=== PATIENT | male | born 1955 | race Caucasian/White ===

== ENCOUNTER 2018-07-28 17:55 | Emergency (ER) | payer MEDICAID ==
[2018-07-28] MEDS ORDERED: 0.9 % SODIUM CHLORIDE 1,000 ML BAG IV ONE (18:19)
--- NOTE | 2018-07-28 18:19 | Emergency Department Record ---
History of Present Illness - General Chief complaint: Flank Pain Stated complaint: LEFT FLANK PAIN Time Seen by Provider: 07/28/18 18:11 Source: Patient Mode of Arrival: Ambulatory Limitations: No limitations - History of Present Illness Initial comments: The patient is here due to L sided AP for one day. The onset was yesterday and the pain has been gradually worsening. The patient describes it as an aching gnawing pain. He denies any nausea, vomiting, diarrhea, fever, constipation, dysuria, or hematuria. He has no hx of similar issues and no hx of any abdominal surgeries. MD Complaint: Other Onset/Timin -: Days(s) Location: Left flank Radiation: Epigastric, Suprapubic Severity scale (1-10): 8 Quality: Aching, Dull, Sharp, Stabbing Consistency: Intermittent - Related Data Home Medications Medication Instructions Recorded Confirmed Last Taken No Home Med [NO HOME MEDS] 07/28/18 07/28/18 Unknown Allergies Allergy/AdvReac Type Severity Reaction Status Date / Time No Known Drug Allergies Allergy Verified 07/28/18 18:10 Travel Screening - Travel/Exposure Within Last 30 Days Have you traveled within the last 30 days?: No - Travel/Exposure Within Last Year Have you traveled outside the [place] in the last year?: No - Additonal Travel Details Have you been exposed to anyone with a communicable illness?: No - Travel Symptoms Symptom Screening: None Review of Systems Constitutional: Denies: Chills, Fever Eyes: Denies: Eye discharge ENT: Denies: Congestion Respiratory: Denies: Cough, Dyspnea Cardiovascular: Denies: Arrhythmia, Chest pain Endocrine: Denies: Fatigue Gastrointestinal: Reports: Abdominal pain. Denies: Diarrhea, Nausea Genitourinary: Denies: Dysuria Musculoskeletal: Denies: Arthralgia Skin: Denies: Bruising Past Medical History - SOCIAL HISTORY Smoking Status: Current every day smoker Alcohol Use: Rare Drug Use: None - RESPIRATORY Hx Respiratory Disorders: No - CARDIOVASCULAR Hx Cardio Disorders: No - NEURO Hx Neuro Disorders: No - GI Hx GI Disorders: Yes Hx Reflux: Yes - Hx Genitourinary Disorders: No - ENDOCRINE Hx Endocrine Disorders: No - MUSCULOSKELETAL Hx Musculoskeletal Disorders: No - PSYCH Hx Psych Problems: Yes Hx Anxiety: Yes - HEMATOLOGY/ONCOLOGY Hx Hematology/Oncology Disorders: No Family Medical History Any Significant Family History?: No Hx Alcohol Use: Father Hx Diabetes: Mother Hx HTN: Mother Hx Resp Disorders: Mother Physical Exam - General General Appearance: Alert, Oriented x3, Cooperative, No acute distress - Head Head exam: Atraumatic, Normocephalic, Normal inspection - Eye Eye exam: Normal appearance, PERRL - ENT Throat exam: Normal inspection. negative: Tonsillar erythema, Tonsillar exudate - Neck Neck exam: Normal inspection, Full ROM. negative: Tenderness - Respiratory Respiratory exam: Normal lung sounds bilaterally. negative: Respiratory distress - Cardiovascular Cardiovascular Exam: Regular rate, Normal rhythm, Normal heart sounds - GI/Abdominal GI/Abdominal exam: Soft, Tenderness (There is mild to moderate LUQ tenderness but no guarding or rebound.). negative: Distended, Guarding, Hypoactive bowel sounds, Pulsatile mass, Rigid - Extremities Extremities exam: Normal inspection, Full ROM, Normal capillary refill. negative: Tenderness - Neurological Neurological exam: Alert, Normal gait, Oriented X3. negative: Abnormal gait, Altered, Motor sensory deficit - Psychiatric Psychiatric exam: negative: Anxious Course Vital Signs 07/28/18 07/28/18 18:01 18:10 Temperature 97.5 F L Pulse Rate 67 Respiratory 18 Rate Blood Pressure 186/89 [Left Arm] Pulse Ox 97 - Reevaluation(s) Reevaluation #1: The patient is on his way to CT. His care will be turned over to Dr. Stein at 19 :00 due to shift change. 07/28/18 18:46 Medical Decision Making - Lab Data Result diagrams: 07/28/18 18:20 07/28/18 18:20 Disposition Forms: Patient Portal Access Quality - Quality Measures Quality Measures: N/A - Blood Pressure Screening View Details: Yes Does Patient Have Any of the Following: No Blood Pressure Classification: Pre-Hypertensive BP Reading Systolic Measurement: 186 Diastolic Measurement: 89 Screening for High Blood Pressure: < Pre-Hypertensive BP, F/U Documented > [ G8950] Pre-Hypertensive Follow-up Interventions: Referral to alternative/primary care provider.
[2018-07-28 18:29] LABS: URINE APPEARANCE CLEAR; URINE BILIRUBIN NEGATIVE (NEGATIVE); URINE BLOOD MODERATE (NEGATIVE); URINE COLOR YELLOW; URINE GLUCOSE (UA) NEGATIVE (NEGATIVE); URINE KETONE NEGATIVE (NEGATIVE); URINE LEUKOCYTE ESTERASE NEGATIVE (NEGATIVE); URINE NITRITE NEGATIVE (NEGATIVE); URINE PROTEIN NEGATIVE (NEGATIVE); URINE UROBILINOGEN 0.2 E.U./dL (0.20 - 1.00)
[2018-07-28 18:30] LABS: BASO % 0.3 % (0-6); EOS % 1.5 % (0-6); GRAN % 75.5 % (47-80); HEMATOCRIT 41.4 % (42.0-52.0); HEMOGLOBIN 13.6 gm/dl (14.0-18.0); LYMPH % 14.5 % (16-45); MEAN CORPUSCULAR HGB CONC 32.9 g/dl (32-36); MEAN PLATELET VOLUME 10.6 fl (7.4-10.4); MONO % 8.2 % (0-9); PLATELET COUNT 225 K/uL (130-400); RED BLOOD COUNT 4.55 M/uL (4.40-5.70); RED CELL DISTRIBUTION WIDTH 13.9 % (11.5-14.5); WHITE BLOOD COUNT W/O DIFF 11.8 K/uL (4.2-12.2)
[2018-07-28 18:31] LABS: MEAN CORPUSCULAR HEMOGLOBIN 29.8 pg (27-33)
[2018-07-28 18:39] LABS: BLOOD UREA NITROGEN 13 mg/dL (8-23); CREATININE 1.2 mg/dL (0.7-1.2); EST GLOMERULAR FILTRATION RATE > 60 mL/min
[2018-07-28 18:40] LABS: LIPASE 22 U/L (13-60); TOTAL PROTEIN 7.7 g/dL (6.6-8.7); URINE EPITHELIAL CELLS 0 - 2 (FEW); URINE RBC 0 - 2 (NONE SEEN); URINE WBC 0 - 2 (0-2/hpf)
[2018-07-28 18:41] LABS: URINE MUCUS LIGHT
[2018-07-28 18:42] LABS: GLUCOSE,RANDOM 108 mg/dL (74-109)
[2018-07-28 18:44] LABS: ALBUMIN 4.5 g/dL (4.0-5.0); ALT/SGPT 11 U/L (<41); AST/SGOT 14 U/L (10.0-50.0); BILIRUBIN,DIRECT < 0.2 mg/dL (0-0.3)
[2018-07-28 18:45] LABS: ALKALINE PHOSPHATASE 179 U/L (55-149)
[2018-07-28] MEDS ORDERED: KETOROLAC 30 MG/ML VIAL IVP ONE (18:46)
--- NOTE | 2018-07-28 20:54 | Emergency Department Record ---
History of Present Illness - General Chief complaint: Flank Pain Stated complaint: LEFT FLANK PAIN Time Seen by Provider: 07/28/18 18:11 Source: Patient Mode of Arrival: Ambulatory Limitations: No limitations - History of Present Illness Onset/Timin -: Days(s) Location: Left flank Radiation: Epigastric, Suprapubic Severity scale (1-10): 8 Quality: Aching, Dull, Sharp, Stabbing Consistency: Intermittent - Related Data Home Medications Medication Instructions Recorded Confirmed Last Taken No Home Med [NO HOME MEDS] 07/28/18 07/28/18 Unknown Allergies Allergy/AdvReac Type Severity Reaction Status Date / Time No Known Drug Allergies Allergy Verified 07/28/18 18:10 Travel Screening - Travel/Exposure Within Last 30 Days Have you traveled within the last 30 days?: No - Travel/Exposure Within Last Year Have you traveled outside the [place] in the last year?: No - Additonal Travel Details Have you been exposed to anyone with a communicable illness?: No - Travel Symptoms Symptom Screening: None Review of Systems Constitutional: Denies: Chills, Fever Eyes: Denies: Eye discharge ENT: Denies: Congestion Respiratory: Denies: Cough, Dyspnea Cardiovascular: Denies: Arrhythmia, Chest pain Endocrine: Denies: Fatigue Gastrointestinal: Reports: Abdominal pain. Denies: Diarrhea, Nausea Genitourinary: Denies: Dysuria Musculoskeletal: Denies: Arthralgia Skin: Denies: Bruising Past Medical History - SOCIAL HISTORY Smoking Status: Current every day smoker Alcohol Use: Rare Drug Use: None - RESPIRATORY Hx Respiratory Disorders: No - CARDIOVASCULAR Hx Cardio Disorders: No - NEURO Hx Neuro Disorders: No - GI Hx GI Disorders: Yes Hx Reflux: Yes - Hx Genitourinary Disorders: No - ENDOCRINE Hx Endocrine Disorders: No - MUSCULOSKELETAL Hx Musculoskeletal Disorders: No - PSYCH Hx Psych Problems: Yes Hx Anxiety: Yes - HEMATOLOGY/ONCOLOGY Hx Hematology/Oncology Disorders: No Family Medical History Any Significant Family History?: No Hx Alcohol Use: Father Hx Diabetes: Mother Hx HTN: Mother Hx Resp Disorders: Mother Physical Exam - General Limitations: No limitations Course Vital Signs 07/28/18 07/28/18 07/28/18 18:01 18:10 19:22 Temperature 97.5 F L Pulse Rate 67 Pulse Rate [ 70 Pulse Ox Probe] Respiratory 18 22 Rate Blood Pressure 186/89 179/90 [Left Arm] Pulse Ox 97 97 07/28/18 20:46 Temperature Pulse Rate Pulse Rate [ 64 Pulse Ox Probe] Respiratory 18 Rate Blood Pressure 158/73 [Left Arm] Pulse Ox 96 - Reevaluation(s) Reevaluation #1: 07/28/18 19:[address] scan demonstrated left sided HU and HN without visible obstruction. Questionable thickening of the duodenum. Non specific sclerotic changes in the bone on the left near the kidney. May need follow up bone scan The CT was reviewed with the radiologist. CT with IV contrast ordered. The patient was updated. He reports he has not had a PCP since "he was born" 07/28/18 20:[address] with contrast does not demonstrate an obstruction. There is irregularity to the bladder trigone. Neoplasm can not be ruled out. 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 He was informed of the results He needs a new PCP and he will be referred to outpatient urology for follow up 07/28/18 20:57 I SW the office automation technician [facility] provider Liza Garcia to help establish follow up with a PCP and assist in the follow up of the bladder work up to rule out cancer Medical Decision Making - Lab Data Result diagrams: 07/28/18 18:20 07/28/18 18:20 Lab Results 07/28/18 07/28/18 07/28/18 Range/Units 18:20 18:20 18:20 WBC 11.8 (4.2-12.2) K/uL RBC 4.55 (4.40-5.70) M/uL Hgb 13.6 L (14.0-18.0) gm/dl Hct 41.4 L (42.0-52.0) % MCV 91.0 (81-97) fl MCH 29.8 (27-33) pg MCHC 32.9 (32-36) g/dl RDW 13.9 (11.5-14.5) % Plt Count 225 (130-400) K/uL MPV 10.6 H (7.4-10.4) fl Gran % 75.5 (47-80) % Lymphocytes % 14.5 L (16-45) % Monocytes % 8.2 (0-9) % Eosinophils % 1.5 (0-6) % Basophils % 0.3 (0-6) % Sodium 141 (136-145) mmol/L Potassium 3.6 (3.4-4.5) mmol/L Chloride 99 (98-107) mmol/L Carbon Dioxide 25.0 (22-29) mmol/L Anion Gap 17.0 H (7-16) BUN 13 (8-23) mg/dL Creatinine 1.2 (0.7-1.2) mg/dL Estimated GFR > 60 mL/min Random Glucose 108 (74-109) mg/dL Calcium 9.4 (8.8-10.2) mg/dL Total Bilirubin 0.20 (0.2-1.0) mg/dL Direct Bilirubin < 0.2 (0-0.3) mg/dL AST 14 (10.0-50.0) U/L ALT 11 (<41) U/L Alkaline Phosphatase 179 H (55-149) U/L Total Protein 7.7 (6.6-8.7) g/dL Albumin 4.5 (4.0-5.0) g/dL Lipase 22 (13-60) U/L Urine Color Yellow Urine Appearance Clear Urine pH 6.0 (5.0-8.0) Ur Specific [place] 1.020 (1.002-1.030) Urine Protein Negative (NEGATIVE) Urine Glucose (UA) Negative (NEGATIVE) Urine Ketones Negative (NEGATIVE) Urine Blood Moderate (NEGATIVE) Urine Nitrite Negative (NEGATIVE) Urine Bilirubin Negative (NEGATIVE) Urine Urobilinogen 0.2 (0.20 - 1.00) E.U./dL Ur Leukocyte Esterase Negative (NEGATIVE) Urine RBC 0 - 2 (NONE SEEN) Urine WBC 0 - 2 (0-2/hpf) Ur Epithelial Cells 0 - 2 (FEW) Urine Mucus Light Disposition Disposition: Discharge Clinical Impression: Hydronephrosis Disposition: Home, Self-Care Condition: (1) Good Instructions: Flank Pain (ED) Additional Instructions: Call the office tomorrow for a new family doctor You will be referred to a urologist to see in the office to review the CT scan that shows the irregular area in your bladder that could be cancer Return to the ER for a recheck if worse, any new concerns or questions Review this ER visit and the tests performed with your family doctor Referrals: MYRON GOODMAN M.D. [MEDICAL DOCTOR] - AVERY NICK [MEDICAL DOCTOR] - [facility] [Provider Group] Forms: Patient Portal Access Time of Disposition: 20:54 Quality - Quality Measures Quality Measures: N/A - Blood Pressure Screening Does Patient Have Any of the Following: No Blood Pressure Classification: Hypertensive Reading Systolic Measurement: 158 Diastolic Measurement: 73 Screening for High Blood Pressure: < Pre-Hypertensive BP, F/U Documented > [ G8950] Pre-Hypertensive Follow-up Interventions: Referral to alternative/primary care provider.
--- NOTE | 2018-07-29 14:23 | CT SCAN REPORT ---
EXAM: CT SCAN OF THE ABDOMEN AND PELVIS HISTORY: PATIENT PRESENTS WITH LEFT FLANK PAIN SINCE YESTERDAY. PATIENT DENIES ANY HISTORY OF KIDNEY STONES. TECHNIQUE: Serial axial CT scan of the abdomen and pelvis was performed 2.5 mm intervals from the dome of the diaphragm down to the pubic symphysis without the use of intravenous or oral contrast. No comparison CT's are available. FINDINGS: The lung windows of the lung bases demonstrate no CT evidence of a focal infiltrate or pleural effusion. Paraseptal emphysematous changes are identified within the left lingular lobe and right middle lobe. The visualized heart size and contour is within normal limits. The liver, spleen, bilateral adrenal glands, pancreas, and gallbladder are unremarkable. The contour and caliber of the noncontrasted abdominal aorta is within normal limits. Occasional subcentimeter lymph nodes are identified within the periaortic space. No obvious pathologically enlarged lymph nodes are identified. The right kidney demonstrates no CT evidence of hydronephrosis or hydroureter. There is moderate left sided hydronephrosis and proximal hydroureter. The exact source of the obstruction is not clear. No obvious renal or ureteral calculi are noted. The bowel gas pattern is nonobstructive. There is questionable wall thickening of the third and fourth segments of the duodenum. This finding may be reactive from the inflammatory changes adjacent to the left kidney. There is no CT evidence of free intraperitoneal fluid or free intraperitoneal air. The urinary bladder is unremarkable. Bone windows demonstrate irregular sclerotic regions throughout the visualized axial and appendicular skeleton. Within the right superior pubic ramus, there is a questionable lytic lesion. If there is further clinical concern then a bone scan can be obtained. for further evaluation. IMPRESSION: 1. MODERATE LEFT SIDED HYDRONEPHROSIS AND HYDROURETER. THE EXACT ETIOLOGY FOR THIS HYDRONEPHROSIS AND HYDROURETER IS UNCLEAR. NO OBVIOUS OBSTRUCTING RENAL OR URETERAL CALCULI ARE NOTED. 2. IRREGULAR LYTIC AND SCLEROTIC LESIONS ARE IDENTIFIED THROUGHOUT THE AXIAL AND APPENDICULAR SKELETON. IF THERE IS FURTHER CLINICAL CONCERN THEN A BONE SCAN CAN BE OBTAINED FOR FURTHER EVALUATION. 3. THERE IS QUESTIONABLE WALL THICKENING OF THE SECOND AND THIRD SEGMENTS OF THE DUODENUM. THIS FINDING MAY BE REACTIVE DUE TO THE INFLAMMATORY CHANGES SURROUNDING THE LEFT KIDNEY. JOB [facility]BER: [id number] [facility]
--- NOTE | 2018-07-29 14:41 | CT SCAN REPORT ---
EXAM: CT SCAN OF THE ABDOMEN AND PELVIS HISTORY: PATIENT HAS LEFT SIDED FLANK PAIN. TECHNIQUE: Serial axial CT scan of the abdomen and pelvis was performed at 2.5 mm intervals from the dome of the diaphragm down to the pubic symphysis following the intravenous administration of 100 ml of Omnipaque 300. Comparison: CT scan of the abdomen and pelvis dated 07/28/18 is provided. FINDINGS: The lung windows of the lung bases demonstrate no CT evidence of a focal infiltrate or pleural effusion. The visualized heart size and contour is within normal limits. The liver, spleen, pancreas, bilateral adrenal glands, and gallbladder are unremarkable. The right kidney demonstrates no CT evidence of hydronephrosis or hydroureter. 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 Again, no obstructive calculus is identified. No obvious obstructive lesion is identified within the distal left ureter. The contour, caliber, and flow within the abdominal aorta is within normal limits. There are occasional nonspecific subcentimeter lymph nodes identified within the left periaortic space which may be reactive. The bowel gas pattern is nonspecific, and nonobstructive. The appendix is clearly visualized, and there is no CT evidence of appendicitis. There is no CT evidence of free intraperitoneal fluid or free intraperitoneal air. The urinary bladder demonstrates irregular contour at its trigone which seems to extend close to the ureterovesical junction. This finding may be the result of prostatic hypertrophy, however, obstructive urothelial neoplasms cannot be entirely excluded. Direct endoscopic evaluation is recommended. Bone windows demonstrate subtle lytic and sclerotic lesions identified throughout the visualized axial and appendicular skeleton. Metastatic disease cannot be excluded. A bone scan can be obtained for further evaluation. IMPRESSION: 1. NOTED ON THE PRIOR CT SCAN, THERE IS MODERATE LEFT SIDED HYDRONEPHROSIS AND HYDROURETER. 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 2. THERE IS IRREGULAR CONTOUR AT THE TRIGONE OF THE URINARY BLADDER. THIS FINDING MAY BE RELATED TO PROSTATIC HYPERTROPHY, HOWEVER, OBSTRUCTIVE UROTHELIAL NEOPLASM CANNOT BE EXCLUDED. DIRECT ENDOSCOPIC EVALUATION IS RECOMMENDED. 3. THERE IS LYTIC SCLEROTIC LESIONS IDENTIFIED THROUGHOUT THE VISUALIZED AXIAL AND APPENDICULAR SKELETON. BONE SCAN CAN BE OBTAINED FOR FURTHER EVALUATION. JOB NUMBER: [id number] [facility]
== END 2018-07-28 21:09 | disposition home or self-care (01) ==
LOC: ER 17:55
DX: N13.30 Unspecified hydronephrosis (principal); R10.13 Epigastric pain; R31.29 Other microscopic hematuria; R94.8 Abnormal results of function studies of other organs and systems; F17.210 Nicotine dependence, cigarettes, uncomplicated
CPT/HCPCS: 99284 ×2; 96374; 96361; 83690; 85025; 80076; 80048; 81001; 74176; 74177; Q9967; J1885; J7030

== ENCOUNTER 2018-10-18 10:15 | Emergency (ER) | payer MEDICAID ==
[2018-10-18] MEDS ORDERED: HYDROCODONE/APAP 5/325MG TABLET PO ONE (10:26)
--- NOTE | 2018-10-18 10:26 | Emergency Department Record ---
History of Present Illness - General Stated complaint: LEFT TESTICLE PAINFUL Time Seen by Provider: 10/18/18 10:17 Source: Patient Mode of Arrival: Ambulatory Limitations: No limitations - History of Present Illness Initial comments: 63 yo male presents with right testicular pain and swelling for one day. The patient was seen in July for left flank pain. CT demonstrated HN without obstruction with a thickened bladder. He followed up with [facility]. He had a TURP. The patient thinks his working diagnosis is prostate cancer. He is urinating normally. No fever. No warmth or redness. The pain and swelling started yesterday without any trauma. MD Complaint: Testicle pain -: Days(s) (1) Location: Right testicle Radiation: RLQ Severity: Moderate Quality: Aching Consistency: Constant Improves with: Rest Worsens with: Palpation Other Reports: Denies other symptoms - Related Data Home Medications Medication Instructions Recorded Confirmed Last Taken Oxybutynin Chloride [Oxybutynin 10 mg PO DAILY 10/18/18 10/18/18 1 Day Ago Chloride ER] ~10/17/18 Phenazopyridine HCl 200 mg PO TID 10/18/18 10/18/18 1 Day Ago ~10/17/18 Tamsulosin HCl [Flomax] 0.4 mg PO DAILY 10/18/18 10/18/18 1 Day Ago ~10/17/18 Previous Rx's Medication Instructions Recorded Hydrocodone/APAP 5/325Mg [[place] 1 each PO Q6H #12 tab 10/18/18 5Mg/325Mg] Sulfamethoxazole/Trimethoprim 1 each PO BID #28 tablet 10/18/18 [Bactrim Ds Tablet] Allergies Allergy/AdvReac Type Severity Reaction Status Date / Time No Known Drug Allergies Allergy Verified 10/18/18 10:28 Review of Systems Constitutional: Denies: Chills, Fever, Malaise, Weakness Eyes: Denies: Eye discharge, Eye pain, Photophobia, Vision change ENT: Denies: Congestion, Throat pain Respiratory: Denies: Cough, Dyspnea Cardiovascular: Denies: Chest pain, Palpitations, Syncope Endocrine: Denies: Fatigue Gastrointestinal: Reports: Abdominal pain. Denies: Diarrhea, Nausea, Vomiting Genitourinary: Reports: As per HPI, Testicular pain. Denies: Dysuria, Frequency, Hematuria, Incontinence, Testicular mass, Urgency Musculoskeletal: Denies: Arthralgia, Back pain, Joint swelling, Myalgia Neurological: Denies: Abnormal gait, Confusion, Headache Psychiatric: Denies: Anxiety Hematological/Lymphatic: Denies: Easy bleeding, Easy bruising Past Medical History - SOCIAL HISTORY Smoking Status: Current every day smoker Drug Use: None - RESPIRATORY Hx Respiratory Disorders: No - CARDIOVASCULAR Hx Cardio Disorders: No - NEURO Hx Neuro Disorders: No - GI Hx GI Disorders: Yes Hx Reflux: Yes - Hx Genitourinary Disorders: No - ENDOCRINE Hx Endocrine Disorders: No - MUSCULOSKELETAL Hx Musculoskeletal Disorders: No - PSYCH Hx Psych Problems: Yes Hx Anxiety: Yes - HEMATOLOGY/ONCOLOGY Hx Hematology/Oncology Disorders: No Family Medical History Hx Alcohol Use: Father Hx Diabetes: Mother Hx HTN: Mother Hx Resp Disorders: Mother Physical Exam - General General Appearance: Alert, Oriented x3, Cooperative, No acute distress Limitations: No limitations - Head Head exam: Atraumatic - Eye Eye exam: Normal appearance, PERRL. negative: Conjunctival injection, Scleral icterus - ENT ENT exam: Normal exam Ear exam: Normal external inspection Nasal Exam: Normal inspection Mouth exam: Normal external inspection - Neck Neck exam: Normal inspection - Respiratory Respiratory exam: Normal lung sounds bilaterally. negative: Respiratory distress - Cardiovascular Cardiovascular Exam: Regular rate, Normal rhythm, Normal heart sounds - GI/Abdominal GI/Abdominal exam: Soft, Normal bowel sounds. negative: Distended, Guarding, Hernia, Mass, Rebound, Rigid, Tenderness - Rectal Rectal exam: Deferred - exam: Circumcision, Normal inspection, Scrotal swelling (mild swelling on the right side of the scrotum, very soft, no abnormal warmth or redness, the right testicle is tender and mildly enlarged but mobile, cremasteric reflex was intact), Testicular tenderness. negative: Urethral discharge - Extremities Extremities exam: Normal inspection - Back Back exam: Denies: CVA tenderness (R), CVA tenderness (L) - Neurological Neurological exam: Alert, Oriented X3 - Psychiatric Psychiatric exam: Normal affect, Normal mood. negative: Agitated, Anxious - Skin Skin exam: Dry, Intact, Normal color, Warm Course - Reevaluation(s) Reevaluation #1: EMR reviewed from the July ED visit The patient has surgery through [facility] but unsure of which doctor 10/18/18 10:30 10/18/18 11:30 The UA demonstrates findings consistent with UTI. Culture was sent 10/18/18 12:33 The US was reviewed. No mass no torsion. The are findings to support epidimytis. Epididymal cysts noted. The patient has a urologist and PCP. He was placed on antibiotics and recommend he call today to follow up the US with his doctors. Disposition Disposition: Discharge Clinical Impression: Urinary tract infection, Epididymitis Disposition: Home, Self-Care Condition: (1) Good Instructions: Epididymitis (ED), Urinary Tract Infection in Men (ED) Additional Instructions: Call your Urology doctor for the next available follow up appointment this week Review this ER visit and the tests performed with your family doctor and your urology doctor Return to the ER for a recheck if worse, any new concerns or questions Take the prescriptions provided as directed Prescriptions: Sulfamethoxazole/Trimethoprim [Bactrim Ds Tablet] 1 each PO BID #28 tablet Hydrocodone/APAP 5/325Mg [[place] 5Mg/325Mg] 1 each PO Q6H #12 tab Time of Disposition: 12:37 Quality - Quality Measures Quality Measures: N/A - Blood Pressure Screening Does Patient Have Any of the Following: No Blood Pressure Classification: Pre-Hypertensive BP Reading Systolic Measurement: 135 Diastolic Measurement: 78 Screening for High Blood Pressure: < Pre-Hypertensive BP, F/U Documented > [G8950] Pre-Hypertensive Follow-up Interventions: Referral to alternative/primary care provider.
[2018-10-18 11:08] LABS: URINE APPEARANCE SL CLOUDY; URINE BILIRUBIN SMALL (NEGATIVE); URINE BLOOD MODERATE (NEGATIVE); URINE COLOR ORANGE; URINE KETONE NEGATIVE (NEGATIVE); URINE LEUKOCYTE ESTERASE LARGE (NEGATIVE); URINE NITRITE POSITIVE (NEGATIVE)
[2018-10-18 11:25] LABS: URINE EPITHELIAL CELLS 0 - 2 (FEW); URINE WBC >50 (0-2/hpf)
[2018-10-18 11:26] LABS: URINE BACTERIA FEW
[2018-10-18] MEDS ORDERED: TMP/SMZ 160MG/800MG TAB PO ONE (11:33)
--- NOTE | 2018-10-18 14:09 | ULTRASOUND REPORT ---
EXAM: ULTRASOUND OF THE SCROTUM HISTORY: RIGHT SIDED SCROTAL PAIN AND GROIN PAIN FOR TWO DAYS. BLADDER BIOPSY ONE MONTH AGO. TECHNIQUE: High resolution scrotal ultrasound was performed. Comparison: CT abdomen and pelvis with contrast dated 07/28/18. FINDINGS: Each testicle is well visualized and smoothly marginated. No intratesticular mass is seen and each testicle is homogeneous in echotexture throughout. The right testicle measures 3.5 x 2.2 x 3.6 cm and the left testicle measures 4.0 x 2.7 x 2.8 cm. Blood flow is demonstrated in each testicle with color Doppler and Duplex Doppler evaluation. Spectral analysis demonstrates venous and arteria waveforms in each testicle. On the right, the epididymis appears enlarged with increased vascularity. Epididymitis is the most likely etiology. There are several small cystic areas within the right epididymal head consistent with epididymal cysts or spermatoceles. There is a hypoechoic, partially complex cystic nodule within the right epididymal body/tail measuring 10 x 10 x 7 mm. This is hypovascular. The etiology is indeterminate though the vast majority of extratesticular masses are benign. This may represent a complex epididymal cyst or spermatocele. There is a small right hydrocele with debris within. The left epididymis is normal in appearance. A tiny left hydrocele is questioned. IMPRESSION: 1. ENLARGED RIGHT EPIDIDYMIS WITH INCREASED VASCULARITY SUSPICIOUS FOR EPIDIDYMITIS. THERE IS AN ASSOCIATED SMALL RIGHT HYDROCELE WITH A SMALL AMOUNT OF DEBRIS. 2. SEVERAL SMALL CYSTIC AREAS WITHIN THE RIGHT EPIDIDYMAL HEAD CONSISTENT WITH EPIDIDYMAL CYSTS OR SPERMATOCELES. 3. COMPLEX LIKELY CYSTIC STRUCTURE WITHIN THE RIGHT EPIDIDYMAL BODY/TAIL, DISCUSSED ABOVE. 4. TINY LEFT HYDROCELE. 5. NO EVIDENCE OF TESTICULAR TORSION. JOB NUMBER: [id number] [facility]
== END 2018-10-18 12:53 | disposition home or self-care (01) ==
LOC: ER 10:15
DX: N39.0 Urinary tract infection, site not specified (principal); N45.1 Epididymitis; F17.210 Nicotine dependence, cigarettes, uncomplicated
CPT/HCPCS: 76870; 81001; 99283; 99284